=== PATIENT | female | born 1980 | race American Indian/Alaskan Native ===

== ENCOUNTER 2017-12-20 22:29 | Inpatient (IN) | payer SELFPAY ==
[2017-12-20] MEDS ORDERED: Sodium Chloride 0.9% 1,000 ML IV ONE (22:38)
--- NOTE | 2017-12-20 22:38 | ED Physician Chart ---
ED Chief Complaint/HPI - Patient Information Date Seen:: 12/20/17 Time Seen:: 22:30 Chief Complaint:: Abdominal Pain History of Present Illness:: onset x 3 days of intermittent, diffuse, crampy Abd. Pain, A/ N/V/D, weakness, dizziness,; pt denies trauma, H/As, S/T, neck pain, C/P, SOB, fever, chills, cough, or urinary s/s Historian:: Patient Review:: Nurse's Note Reviewed ED Review of Systems - Review of Systems General/Constitutional: No fever, No chills, No weight loss, No weakness, No diaphoresis, No edema, No loss of appetite Skin: No skin lesions, No rash, No bruising Head: No headache, No light-headedness Eyes: No loss of vision, No pain, No diplopia ENT: No earache, No nasal drainage, No sore throat, No tinnitus Neck: No neck pain, No swelling, No thyromegaly, No stiffness, No mass noted Cardio Vascular: No chest pain, No palpitations, No PND, No orthopnea, No edema Pulmonary: No SOB, No cough, No sputum, No wheezing GI: Nausea, Vomiting, Diarrhea, Pain, No melena, No hematochezia, No constipation, No hematemesis G/U: No dysuria, No frequency, No hematuria, No nacturia Puppy Walker: No vaginal discharge, No abnormal vaginal bleed, No contraction Musculoskeletal: No bone or joint pain, No back pain, No muscle pain Endocrine: No polyuria, No polydipsia Psychiatric: No prior psych history, No depression, No anxiety, No suicidal ideation, No homicidal ideation, No auditory hallucination, No visual hallucination Hematopoietic: No bruising, No lymphadenopathy Allergic/Immuno: No urticaria, No angioedema Neurological: No syncope, No focal symptoms, No weakness, No paresthesia, No headache, No seizure, No dizziness, No confusion, No vertigo ED Past Medical History - Past Medical History Obtainable: Yes Past Medical History: No significant medical hx Family History: HTN Social History: Non Smoker, Alcohol, No Drug Use, Single Surgical History: None Psychiatricy History: None Medication: Reviewed Family Medical History - Family Member Mother History Unknown: Yes ED Physical Exam - Physical Examination General/Constitutional: Awake, Well-developed, well-nourished, Alert, No distress, GCS 15, Non-toxic appearing, Ambulatory Head: Atraumatic Eyes: Lids, conjuctiva normal, PERRL, EOMI Other Eyes comments:: + Scleral Icterus Skin: Nl inspection, No rash, No skin lesions, No ecchymosis, Well hydrated, No lymphadenopathy Other Skin comments:: + Jaundice ENMT: External ears, nose nl, TM canals nl, Nasal exam nl, Lips, teeth, gums nl , Oropharynx nl, Tonsils nl Neck: Nontender, Full ROM w/o pain, No JVD, No nuchal rigidity, No bruit, No mass, No stridor Respiratory: Nl effort/Exclusion, Clear to Auscultation, No Wheeze/Rhonchi/Rales Cardio Vascular: RRR, No murmur, gallop, rubs, NL S1 S2, Carotid/Femoral/Distal pulses equal bilaterally GI: No tenderness/rebounding/guarding, No organomegaly, No hernia, Normal BS's, Nondistended, No mass/bruits, No McBurney tenderness Other GI comments:: + Ascites : No CVA tenderness Extremities: No tenderness or effusion, Full ROM, normal strength in all extremities, No edema, Normal digits & nails Neuro/Psych: Alert/oriented, DTR's symmetric, Normal sensory exam, Normal motor strength, Judgement/insight normal, Mood normal, Normal gait, No focal deficits Misc: Normal back, No paraspinal tenderness ED Labs/Radiology/EKG Results - Lab Results Comments:: ETOH: 281; WBC: 13.2; K+: 3.0; Elevated LFTs - EKG Interpretations EKG Time:: 22:50 Rate & Rhythm: 88; NSR Comments:: non-specific st-t changes ED Septic Shock - . Is Septic Shock (SBP<90, OR Lactate>4 mmol\L) present?: No ED Reassessment (Disposition) - Diagnosis Diagnosis:: Alcohol Intoxication; Hepatic Cirrhosis; Hypokalemia; Abdominal Pain; Ascites; AGE; N/V/D; Dehydration; Dizziness; Weakness - Aftercare/Follow up Instructions Aftercare/Follow-Up Instructions:: Counseled pt regarding lab results/diagnosis & need follow up, Counseled pt & family regarding lab results/diagnosis & need follow up - Patient Disposition Discharge/Transfer:: Acute Care w/in this hosp Accepting Physician:: Dr. Baker Time Called:: 299 Time Responded:: 23:50 Admitted to:: Telemetry Spoke to:: Dr. Baker Admitting Medical Physician:: Dr. Baker Condition at Disposition:: Stable, Improved
[2017-12-20 23:01] LABS: % BASOPHILS 0.8 % (0.0-2.0); % EOSINOPHILS 2.1 % (0.0-5.0); % LYMPHOCYTES 23.7 % (20.0-50.0); % NEUTROPHILS 67.4 % (40.0-80.0); BASOPHILE ABSOLUTE 0.1 Th/cumm (0-0.2); EOSINOPHILE ABSOLUTE 0.3 Th/cmm (0.1-0.4); HEMATOCRIT 46.2 % (41.0-60); HEMOGLOBIN 15.3 gm/dL (12-16); LYMPHOCYTE ABSOLUTE 3.1 Th/cmm (1.5-3.0); MEAN CELL VOLUME 101.8 fl (81-100); MEAN CORPUSCULAR HEMOGLOBIN 33.7 pg (27.0-31.0); MEAN CORPUSCULAR HGB CONC 33.2 pg (28.0-36.0); MEAN PLATELET VOLUME 8.7 fl; MONOCYTE ABSOLUTE 0.8 Th/cmm (0.3-1.0); NEUTROPHILE ABSOLUTE 8.9 Th/cmm (1.8-8.0); PLATELET COUNT 203 Th/cmm (150-400); RED BLOOD COUNT 4.53 Mil/cmm (3.80-5.10); RED CELL DISTRIBUTION WIDTH 13.7 % (11.5-20.0); URINE MICROSCOPIC INDICATED? YES; URINE SOURCE CLEAN C
[2017-12-20 23:04] LABS: URINE BILIRUBIN NEGATIVE (NEGATIVE); URINE BLOOD NEGATIVE (NEGATIVE); URINE GLUCOSE (UA) 100 mg/dL (NEGATIVE); URINE KETONE NEGATIVE (NEGATIVE); URINE LEUKOCYTE ESTERASE NEGATIVE (NEGATIVE); URINE NITRATE NEGATIVE (NEGATIVE); URINE PH 6.5 (4.6 - 8.0); URINE PROTEIN NEGATIVE (NEGATIVE); URINE UROBILINOGEN 0.2 E.U./dL (0.2 - 1.0)
[2017-12-20 23:11] LABS: WHITE BLOOD COUNT 13.2 Th/cmm (4.8-10.8)
[2017-12-20 23:12] LABS: URINE CLARITY CLEAR (CLEAR); URINE COLOR YELLOW
[2017-12-20 23:15] LABS: INR 1.01 (0.5-1.4); PROTHROMBIN TIME (TEST) 10.5 SECONDS (9.5-11.5)
[2017-12-20 23:17] LABS: URINE BACTERIA FEW /hpf (NONE SEEN); URINE EPITHELIAL CELLS FEW /lpf (FEW); URINE RBC 0-2 /hpf (0-5); URINE WBC 0-2 /hpf (0-5)
[2017-12-20 23:19] LABS: AMPHETAMINE URINE NEGATIVE (NEGATIVE); BARBITURATES URINE NEGATIVE (NEGATIVE); BENZODIAZEPINES QUAL URINE NEGATIVE (NEGATIVE); CANNABINOID THC NEGATIVE (NEGATIVE); COCAINE METABOLITE QUAL URINE NEGATIVE (NEGATIVE); METHADONE URINE NEGATIVE (NEGATIVE); METHAMPHETAMINES QUAL URINE NEGATIVE (NEGATIVE); OPIATES (MORPHINE) QUAL. URINE NEGATIVE (NEGATIVE); PHENCYCLIDINE (PCP) URINE NEGATIVE (NEGATIVE); TRICYCLICS (TCA) QUAL. URINE NEGATIVE (NEGATIVE)
[2017-12-20 23:29] LABS: ALB/GLOB RATIO 1.5 (1.0-1.8); ALBUMIN 3.8 gm/dL (3.7-5.3); ALKALINE PHOSPHATASE 109 U/L (34-104); AMYLASE SERUM 18 U/L (29-103); ANION GAP 15.1 (7.0-16.0); BILIRUBIN,TOTAL 0.6 mg/dL (0.3-1.0); CALCIUM SERUM 8.9 mg/dL (8.6-10.3); CARBON DIOXIDE 19.9 mEq/L (21.0-31.0); CHLORIDE 104 mEq/L (98-107); CHOLESTEROL 181 mg/dL (<200); CREATININE - SERUM 0.6 mg/dL (0.6-1.2); CREATININE KINASE 50 U/L (30-223); GFR AFRICAN-AMERICAN > 60.0 ml/min (>90); GFR NON AFRICAN-AMERICAN > 60.0 ml/min; GLUCOSE 217 mg/dL (70-105); HDL -HIGH DENSITY LIPOPROTEIN 36 mg/dL (23-92); LIPASE 8 U/L (11-82); SGOT 114 U/L (13-39); SGPT/ALT 68 U/L (7-52); SODIUM SERUM 136 mEq/L (136-145); TOTAL PROTEIN,SERUM 6.4 gm/dL (6.0-8.3); TRIGLYCERIDES 271 mg/dL (<150)
[2017-12-20 23:33] LABS: BUN - UREA NITROGEN < 2 mg/dL (7-25)
[2017-12-21] MEDS ORDERED: Sodium Chloride 0.9% 1,000 ML IV ONE ×2 (00:07→00:08)
[2017-12-21] MEDS ORDERED: Potassium Chloride 20 mEq ER Tab PO ONE ×2 (00:09→00:50)
[2017-12-21] MEDS ORDERED: Multivitamin Inj 10 ML, Thiamine HCL 100 MG, Magnesium Sulfate 2 GM, Folic Acid 1 MG in... IV ONE (00:10)
[2017-12-21] MEDS ORDERED: cefTRIAXone 1 GM in Sodium Chloride 0.9% 50 ML IV ONE (00:11)
[2017-12-21] MEDS ORDERED: Multivitamin Inj 10 mL Vial IV ONE (00:40)
[2017-12-21] MEDS ORDERED: Thiamine 100 mg/mL 2mL Vial ONE (00:41)
[2017-12-21] MEDS ORDERED: Magnesium Sulfate 1 gm/2 mL 2mL Vial IV ONE (00:42)
--- NOTE | 2017-12-21 11:30 | Diagnostic Imaging Report ---
CT scan abdomen and pelvis without intravenous contrast HISTORY: Pain Total DLP equals 613 CTDI equals 12.9 Axial sections were obtained from the xiphoid process down to the pubic symphysis. The liver is enlarged. There is a decrease in overall hepatic parenchymal density consistent with fatty infiltration. The findings should be correlated with liver function tests. No focal lesions. The spleen appears normal. Surgical clips are seen within the daniel hepatis region consistent with a prior cholecystectomy. No focal amenities seen within the pancreas. No focal renal lesions. The exam of the pelvis demonstrates preservation of normal fat planes. No abnormal soft tissue masses or abnormal fluid collections. Surgical clips noted in the right lower quadrant of the abdomen. IMPRESSION: 1. No acute abnormalities 2. Hepatomegaly along with changes suggesting fatty infiltration. The findings should be correlated with liver function tests 3. Surgical changes including findings of a prior cholecystectomy along with surgical clips in the right lower quadrant of the abdomen.
[2017-12-21 19:23] LABS: HEMOGLOBIN 13.6 gm/dL (12-16); MEAN CELL VOLUME 101.2 fl (81-100); MEAN CORPUSCULAR HEMOGLOBIN 34.5 pg (27.0-31.0); MEAN CORPUSCULAR HGB CONC 34.1 pg (28.0-36.0); MEAN PLATELET VOLUME 9.1 fl; RED BLOOD COUNT 3.95 Mil/cmm (3.80-5.10)
[2017-12-21 19:27] LABS: HEMATOCRIT 39.9 % (41.0-60); WHITE BLOOD COUNT 7.8 Th/cmm (4.8-10.8)
[2017-12-21 19:28] LABS: PLATELET COUNT 158 Th/cmm (150-400)
[2017-12-21 19:30] LABS: % LYMPHOCYTES 32.3 % (20.0-50.0); % MONOCYTES 6.8 % (2.0-10.0); % NEUTROPHILS 51.6 % (40.0-80.0); BASOPHILE ABSOLUTE 0.4 Th/cumm (0-0.2); EOSINOPHILE ABSOLUTE 0.3 Th/cmm (0.1-0.4); LYMPHOCYTE ABSOLUTE 2.5 Th/cmm (1.5-3.0); MONOCYTE ABSOLUTE 0.5 Th/cmm (0.3-1.0); NEUTROPHILE ABSOLUTE 4.1 Th/cmm (1.8-8.0)
[2017-12-21 19:31] LABS: % BASOPHILS 0.3 % (0.0-2.0)
[2017-12-21 19:45] LABS: ANION GAP 8.3 (7.0-16.0); BUN - UREA NITROGEN 3 mg/dL (7-25); CALCIUM SERUM 8.6 mg/dL (8.6-10.3); CARBON DIOXIDE 25.3 mEq/L (21.0-31.0); CHLORIDE 106 mEq/L (98-107); CREATININE - SERUM 0.6 mg/dL (0.6-1.2); GFR AFRICAN-AMERICAN > 60.0 ml/min (>90); GFR NON AFRICAN-AMERICAN > 60.0 ml/min; POTASSIUM SERUM 3.6 mEq/L (3.5-5.1); SODIUM SERUM 136 mEq/L (136-145)
[2017-12-21 19:47] LABS: GLUCOSE 129 mg/dL (70-105)
[2017-12-21] MEDS: Lactulose 10 Gm/15 mL 30mL UDC PO SCH (22:01)
[2017-12-22 06:39] LABS: % BASOPHILS 1.5 % (0.0-2.0); % EOSINOPHILS 5.5 % (0.0-5.0); % LYMPHOCYTES 39.6 % (20.0-50.0); % MONOCYTES 6.5 % (2.0-10.0); % NEUTROPHILS 46.9 % (40.0-80.0); BASOPHILE ABSOLUTE 0.1 Th/cumm (0-0.2); EOSINOPHILE ABSOLUTE 0.4 Th/cmm (0.1-0.4); HEMATOCRIT 39.6 % (41.0-60); HEMOGLOBIN 13.8 gm/dL (12-16); MEAN CORPUSCULAR HEMOGLOBIN 35.2 pg (27.0-31.0); MEAN CORPUSCULAR HGB CONC 34.9 pg (28.0-36.0); MEAN PLATELET VOLUME 8.8 fl; MONOCYTE ABSOLUTE 0.5 Th/cmm (0.3-1.0); NEUTROPHILE ABSOLUTE 3.6 Th/cmm (1.8-8.0); PLATELET COUNT 149 Th/cmm (150-400); RED BLOOD COUNT 3.91 Mil/cmm (3.80-5.10); RED CELL DISTRIBUTION WIDTH 13.8 % (11.5-20.0); WHITE BLOOD COUNT 7.6 Th/cmm (4.8-10.8)
[2017-12-22 07:28] LABS: ANION GAP 8.8 (7.0-16.0); BUN - UREA NITROGEN 3 mg/dL (7-25); CALCIUM SERUM 9.1 mg/dL (8.6-10.3); CARBON DIOXIDE 26.7 mEq/L (21.0-31.0); CHLORIDE 106 mEq/L (98-107); CREATININE - SERUM 0.6 mg/dL (0.6-1.2); GFR AFRICAN-AMERICAN > 60.0 ml/min (>90); GFR NON AFRICAN-AMERICAN > 60.0 ml/min; GLUCOSE 111 mg/dL (70-105); POTASSIUM SERUM 3.5 mEq/L (3.5-5.1); SODIUM SERUM 138 mEq/L (136-145)
[2017-12-22] MEDS: Lactulose 10 Gm/15 mL 30mL UDC PO SCH ×3 (10:25→21:19)
[2017-12-22] MEDS: Pantoprazole 40 mg EC Tab PO SCH (16:15)
[2017-12-22] MEDS: Multivitamin Tab PO SCH (16:15)
--- NOTE | 2017-12-22 19:19 | History & Physical ---
ADMIT DATE: 12/21/2017 CHIEF COMPLAINT: Abdominal pain. HISTORY OF PRESENT ILLNESS: This is a 37-year-old female who was admitted to the Emergency Room due to 3 days of intermittent abdominal pain. REVIEW OF SYSTEMS: GENERAL: This is a 37-year-old female that appears as stated. Denies any fever, denies any chills. HEENT: Head, denies any headache. Denies any dizziness. Eyes: Denies blurring of vision. Denies eye pain. NECK: Denies nuchal rigidity. Denies neck pain. CHEST: Denies palpitation. Denies shortness of breath. PULMONARY: Denies coughing. GASTROINTESTINAL: Positive nausea, positive vomiting, and positive abdominal pain. MUSCULOSKELETAL: Denies joint pain. Denies muscle pain. SOCIAL HISTORY: The patient lives at home with family. The patient admits to have alcohol intake almost on daily basis. The patient smoked half a pack of cigarettes per day. PAST SURGICAL HISTORY: Unremarkable. PAST MEDICAL HISTORY: Includes liver cirrhosis as per patient. FAMILY HISTORY: Unremarkable. PHYSICAL EXAMINATION: VITAL SIGNS: Temperature 98.3, heart rate of 53, blood pressure 154/86, respirations of 20, and 96% on room air. HEENT: Head is atraumatic, normocephalic. Eyes, bilateral conjunctivae are clear. Bilateral pupils are equally round and reactive. NECK: Supple. No JVD. CARDIOVASCULAR: S1 and S2, without murmur. LUNGS: Clear to auscultation. GASTROINTESTINAL: Soft and nontender without guarding. Positive bowel sounds. MUSCULOSKELETAL: No clubbing. No cyanosis noted. ASSESSMENT: 1. Liver cirrhosis. 2. Alcohol intoxication, alcohol abuse. 3. Obesity. 4. Nicotine dependence. 5. Gastroesophageal reflux disease. PLAN: We will keep the patient inpatient. We will follow up with the GI doctor to monitor the patient's condition and behavior status. Also do medication reconciliation accordingly. Treatment plans were discussed with the patient's nurse. Treatment plans were discussed with Dr Baker. JOB# [id number]
--- NOTE | 2017-12-22 21:52 | Consultation ---
DATE OF CONSULTATION: 12/22/2017 REASON FOR CONSULTATION: Abnormal liver enzymes and abdominal pain. HISTORY OF PRESENT ILLNESS: This consult was obtained through the courtesy of Dr. Baker for this 37-year-old with history of obesity, presenting to the hospital because of abdominal pain by nausea, vomiting, weakness, dizziness. When patient came to the hospital, she was found to have abnormal liver enzymes and she admits to heavy alcohol intake. PAST MEDICAL HISTORY: Obesity. PAST SURGICAL HISTORY: Had cholecystectomy, appendectomy, and two ectopic pregnancies. SOCIAL HISTORY: Smokes 1 pack a day, drinks 8 drinks a day between two of 24 ounces cans of beer and 4 shots of hard liquor. The patient is ex-nasal abuser who has not used them for many years and she has been tested for hepatitis after the stoppage and she said she was negative. FAMILY HISTORY: Father had kidney cancer. MEDICATIONS: None. ALLERGIES: DEMEROL. REVIEW OF SYSTEMS: She lost 28 pounds over 5 weeks. She has diarrhea constantly for a long time and she denies any bleeding. PHYSICAL EXAMINATION: GENERAL: The patient is awake, oriented to self, place, and time, in no acute distress. VITAL SIGNS: Blood pressure is 124/81, heart rate 62, respiratory rate 18, and temperature is 97.1. HEAD AND NECK: Pupils reactive to light. Extraocular muscles intact. Sclerae anicteric. Conjunctivae not pale. Oral cavity, no lesion. NECK: Supple, no jugular venous distention, no carotid bruit or lymph node. CHEST: Good respiratory movements. LUNGS: Showed bilateral wheezes. CARDIOVASCULAR: Regular rate and rhythm. No murmur or gallop. ABDOMEN: Obese, soft, positive bowel sounds. Positive right upper quadrant tenderness. LABORATORY DATA AND DIAGNOSTIC DATA: Bilirubin is 0.6, AST is 114, ALT 68, alkaline phosphatase 109. Triglycerides 271. Lipase is normal. Albumin is 3.8. PT is normal 10.5 seconds. Platelets counts are 203, now down to 149; H and H are 13.8 and 39.6. The patient had a CT of the abdomen and pelvis, which showed hepatomegaly with fatty infiltration and it showed previous surgery such as cholecystectomy and surgery of the right lower quadrant as well. IMPRESSION: A 37-year-old with heavy alcohol use, presenting with abdominal pain, abnormal liver enzymes. ASSESSMENT AND PLAN: Abdominal pain, nausea, vomiting, this is most likely alcohol-induced gastritis, cannot exclude a small ulcer, erosive esophagitis, etc. RECOMMENDATIONS: 1. PPI. 2. Monitor labs. 3. Avoid alcohol in the future. 4. If the patient is not improving, then endoscopy. 5. Abnormal liver enzyme, at this time to alcoholic liver disease. At this time, there is no evidence of cirrhosis. We will continue with IV fluids. We will add multivitamin, thiamine, folic acid, and then further recommendations to follow. 6. High ammonia level. There is no evidence of encephalopathy, but the patient is on lactulose. We will see what the numbers are. Thank you Dr. Baker for allowing me to participate in the care of the patient. If you have any further questions, please let me know. [facility]# [id number]
[2017-12-23 07:04] LABS: % BASOPHILS 0.9 % (0.0-2.0); % LYMPHOCYTES 30.1 % (20.0-50.0); % MONOCYTES 4.8 % (2.0-10.0); % NEUTROPHILS 58.2 % (40.0-80.0); BASOPHILE ABSOLUTE 0.1 Th/cumm (0-0.2); EOSINOPHILE ABSOLUTE 0.6 Th/cmm (0.1-0.4); LYMPHOCYTE ABSOLUTE 3.2 Th/cmm (1.5-3.0); MEAN CELL VOLUME 101.1 fl (81-100); MEAN CORPUSCULAR HEMOGLOBIN 34.3 pg (27.0-31.0); MEAN CORPUSCULAR HGB CONC 33.9 pg (28.0-36.0); MEAN PLATELET VOLUME 9.2 fl; MONOCYTE ABSOLUTE 0.5 Th/cmm (0.3-1.0); NEUTROPHILE ABSOLUTE 6.2 Th/cmm (1.8-8.0); PLATELET COUNT 164 Th/cmm (150-400); RED BLOOD COUNT 4.38 Mil/cmm (3.80-5.10); RED CELL DISTRIBUTION WIDTH 13.6 % (11.5-20.0)
[2017-12-23 07:08] LABS: WHITE BLOOD COUNT 10.6 Th/cmm (4.8-10.8)
[2017-12-23 07:09] LABS: HEMATOCRIT 44.3 % (41.0-60)
[2017-12-23 07:22] LABS: ALB/GLOB RATIO 1.2 (1.0-1.8); ALBUMIN 3.6 gm/dL (3.7-5.3); ALKALINE PHOSPHATASE 91 U/L (34-104); ANION GAP 10.4 (7.0-16.0); BILIRUBIN,TOTAL 0.9 mg/dL (0.3-1.0); BUN - UREA NITROGEN 4 mg/dL (7-25); CALCIUM SERUM 9.3 mg/dL (8.6-10.3); CARBON DIOXIDE 21.8 mEq/L (21.0-31.0); CHLORIDE 107 mEq/L (98-107); CREATININE - SERUM 0.6 mg/dL (0.6-1.2); GFR AFRICAN-AMERICAN > 60.0 ml/min (>90); GFR NON AFRICAN-AMERICAN > 60.0 ml/min; GLUCOSE 102 mg/dL (70-105); POTASSIUM SERUM 4.2 mEq/L (3.5-5.1); SGOT 67 U/L (13-39); SGPT/ALT 44 U/L (7-52); SODIUM SERUM 135 mEq/L (136-145); TOTAL PROTEIN,SERUM 6.5 gm/dL (6.0-8.3)
[2017-12-23] MEDS: Lactulose 10 Gm/15 mL 30mL UDC PO SCH ×3 (08:25→21:58)
[2017-12-23] MEDS: Pantoprazole 40 mg EC Tab PO SCH (08:26)
[2017-12-23] MEDS: Multivitamin Tab PO SCH (08:26)
--- NOTE | 2017-12-23 10:31 | General Progress Note ---
Subjective - Review of Systems Events since last encounter: in no acute distress c/o abd pain Objective - Results Result Diagrams: 12/23/17 06:51 12/23/17 06:51 Recent Labs: Laboratory Last Values WBC 10.6 Th/cmm (4.8-10.8) D 12/23/17 06:51 RBC 4.38 Mil/cmm (3.80-5.10) 12/23/17 06:51 Hgb 15.0 gm/dL (12-16) 12/23/17 06:51 Hct 44.3 % (41.0-60) D 12/23/17 06:51 MCV 101.1 fl (81-100) H 12/23/17 06:51 MCH 34.3 pg (27.0-31.0) H 12/23/17 06:51 MCHC Differential 33.9 pg (28.0-36.0) 12/23/17 06:51 RDW 13.6 % (11.5-20.0) 12/23/17 06:51 Plt Count 164 Th/cmm (150-400) 12/23/17 06:51 MPV 9.2 fl 12/23/17 06:51 Neutrophils % 58.2 % (40.0-80.0) 12/23/17 06:51 Lymphocytes % 30.1 % (20.0-50.0) 12/23/17 06:51 Monocytes % 4.8 % (2.0-10.0) 12/23/17 06:51 Eosinophils % 6.0 % (0.0-5.0) H 12/23/17 06:51 Basophils % 0.9 % (0.0-2.0) 12/23/17 06:51 PT 10.5 SECONDS (9.5-11.5) 12/20/17 22:45 INR 1.01 (0.5-1.4) 12/20/17 22:45 Sodium 135 mEq/L (136-145) L 12/23/17 06:51 Potassium 4.2 mEq/L (3.5-5.1) 12/23/17 06:51 Chloride 107 mEq/L (98-107) 12/23/17 06:51 Carbon Dioxide 21.8 mEq/L (21.0-31.0) 12/23/17 06:51 Anion Gap 10.4 (7.0-16.0) 12/23/17 06:51 BUN 4 mg/dL (7-25) L 12/23/17 06:51 Creatinine 0.6 mg/dL (0.6-1.2) 02 06:51 Est GFR ( Amer) > 60.0 ml/min (>90) 12/23/17 06:51 Est GFR (Non-Af Amer) > 60.0 ml/min 12/23/17 06:51 BUN/Creatinine Ratio 6.7 12/23/17 06:51 Glucose 102 mg/dL (70-105) 12/23/17 06:51 POC Glucose 136 MG/DL (70 - 105) H 12/21/17 02:58 Hemoglobin A1c % 6.0 % (4.0-6.0) 12/21/17 04:00 Whole Bld Lactic Acid 2.73 mmol/L (0.60-1.99) H* 12/21/17 04:00 Calcium 9.3 mg/dL (8.6-10.3) 12/23/17 06:51 Total Bilirubin 0.9 mg/dL (0.3-1.0) 12/23/17 06:51 AST 67 U/L (13-39) H 12/23/17 06:51 ALT 44 U/L (7-52) 12/23/17 06:51 Alkaline Phosphatase 91 U/L (34-104) 12/23/17 06:51 Ammonia 69 umol/L (16-53) H 12/23/17 06:51 Creatine Kinase 50 U/L (30-223) 12/20/17 22:45 Troponin I < 0.01 ng/mL (0.01-0.05) L 12/20/17 22:45 B-Natriuretic Peptide 35.3 pg/mL (5.0-100.0) 12/20/17 22:45 Total Protein 6.5 gm/dL (6.0-8.3) 12/23/17 06:51 Albumin 3.6 gm/dL (3.7-5.3) L 12/23/17 06:51 Globulin 2.9 gm/dL 12/23/17 06:51 Albumin/Globulin Ratio 1.2 (1.0-1.8) 12/23/17 06:51 Triglycerides 271 mg/dL (<150) H 12/20/17 22:45 Cholesterol 181 mg/dL (<200) 12/20/17 22:45 LDL Cholesterol Direct 119 mg/dL (75-193) 12/20/17 22:45 HDL Cholesterol 36 mg/dL (23-92) 12/20/17 22:45 Amylase 18 U/L (29-103) L 12/20/17 22:45 Lipase 8 U/L (11-82) L 12/20/17 22:45 Serum , Qual NEGATIVE (NEGATIVE) 12/20/17 22:45 Urine Source CLEAN C 12/20/17 22:45 Urine Color YELLOW 12/20/17 22:45 Urine Clarity CLEAR (CLEAR) 12/20/17 22:45 Urine pH 6.5 (4.6 - 8.0) 12/20/17 22:45 Ur Specific [place] <= 1.005 (1.005-1.030) 12/20/17 22:45 Urine Protein NEGATIVE mg/dL (NEGATIVE) 12/20/17 22:45 Urine Glucose (UA) 100 mg/dL (NEGATIVE) H 12/20/17 22:45 Urine Ketones NEGATIVE mg/dL (NEGATIVE) 12/20/17 22:45 Urine Blood NEGATIVE (NEGATIVE) 12/20/17 22:45 Urine Nitrate NEGATIVE (NEGATIVE) 12/20/17 22:45 Urine Bilirubin NEGATIVE (NEGATIVE) 12/20/17 22:45 Urine Urobilinogen 0.2 E.U./dL (0.2 - 1.0) 12/20/17 22:45 Ur Leukocyte Esterase NEGATIVE (NEGATIVE) 12/20/17 22:45 Urine RBC 0-2 /hpf (0-5) 12/20/17 22:45 Urine WBC 0-2 /hpf (0-5) 12/20/17 22:45 Ur Epithelial Cells FEW /lpf (FEW) 12/20/17 22:45 Urine Bacteria FEW /hpf (NONE SEEN) 12/20/17 22:45 Urine Test NEGATIVE 12/20/17 22:45 Urine Opiates Screen NEGATIVE (NEGATIVE) 12/20/17 22:45 Urine Methadone Screen NEGATIVE (NEGATIVE) 12/20/17 22:45 Ur Barbiturates Screen NEGATIVE (NEGATIVE) 12/20/17 22:45 Ur Tricyclics Screen NEGATIVE (NEGATIVE) 12/20/17 22:45 Ur Phencyclidine Scrn NEGATIVE (NEGATIVE) 12/20/17 22:45 Amphetamines Screen NEGATIVE (NEGATIVE) 12/20/17 22:45 U Methamphetamines Scrn NEGATIVE (NEGATIVE) 12/20/17 22:45 U Benzodiazepines Scrn NEGATIVE (NEGATIVE) 12/20/17 22:45 U Cocaine Metab Screen NEGATIVE (NEGATIVE) 12/20/17 22:45 U Cannabinoids Screen NEGATIVE (NEGATIVE) 12/20/17 22:45 Ethyl Alcohol 281 mg/dL (0-10) H 12/20/17 22:45 - Physical Exam Vitals and I&O: Vital Signs Temp 97.7 F 12/23/17 10:08 Pulse 60 12/23/17 10:08 Resp 18 12/23/17 10:08 BP 121/77 12/23/17 10:08 Pulse Ox 97 12/23/17 10:08 Intake & Output 12/22/17 12/23/17 12/23/17 18:59 06:59 18:59 Intake Total 800 1200 Balance 800 1200 Weight (lbs) 92.986 kg 92.896 kg Intake: Oral 800 1200 Other: # Voids 3 4 # Bowel Movements 5 Active Medications: Current Medications Acetaminophen (Tylenol) 650 mg PO Q6H PRN PRN Reason: Headache Last Admin: 12/22/17 01:02 Dose: 650 mg Folic Acid (Folate) 1 mg PO DAILY ANGELIQUE Stop: 02/20/18 15:59 Last Admin: 12/23/17 08:26 Dose: 1 mg Lactulose (Cephulac) 60 gm PO TID ANGELIQUE Stop: 02/19/18 21:44 Last Admin: 12/23/17 08:25 Dose: 60 gm Multivitamins/Vitamin C (Theragran) 1 tab PO DAILY ANGELIQUE Stop: 02/20/18 15:59 Last Admin: 12/23/17 08:26 Dose: 1 tab Pantoprazole Sodium (Protonix) 40 mg PO DAILY ANGELIQUE Stop: 02/20/18 15:59 Last Admin: 12/23/17 08:26 Dose: 40 mg Thiamine HCl (Vitamin B1) 100 mg PO DAILY ANGELIQUE Stop: 02/20/18 15:59 Last Admin: 12/23/17 08:26 Dose: 100 mg Nutritional Asmnt/Malnutr-PDOC - Dietary Evaluation Malnutrition Findings (Please click <Entered> for more info): Nutritional Asmnt/Malnutrition Start: 12/21/17 14: 18 Text: Status: Complete Freq: Document 12/21/17 14:18 TREY (Rec: 12/21/17 14:31 [id number]) Nutritional Asmnt/Malnutrition Patient General Information Nutritional Screening High Risk Diagnosis hypokalemia, sepsis, liver cirrhosis, ETOH Pertinent Medical Hx/Surgical Hx no significant hx Subjective Information Pt seen sitting in bed having lunch at time of visit, alert and pleasant. Pt reported no N /V today, appetite good, liked the fish, and she is vegeterian. Current Diet Order/ Nutrition Support regular Pertinent Medications reviewed Pertinent Labs 12/20 Na 126, K 3.0, Cl 104, BUN <2, Cr 0.6, Glucose 217, 12/21 A1c 6.0, POC 136 Nutritional Hx/Data Height 1.6 m Height (Calculated Centimeters) 160.0 Current Weight (lbs) 90.718 kg Weight (Calculated Kilograms) 90.7 Weight (Calculated Grams) 21653.5 [place] Body Weight 115 % [place] Body Weight 173 Body Mass Index (BMI) 35.4 Weight Status Obese GI Symptoms GI Symptoms None Last BM no record Difficult in: None Usual diet at home pt reported poor oral intake, N/V for 3 days before admission. Skin Integrity/Comment: intact Current %PO Good (75-100%) Estimated Nutritional Goals BEE in Kcals: Adj wt of IBW Calories/Kcals/Kg 25-30 Kcals Calculated 0749-5411 Protein: Adj wt of IBW Protein g/k Protein Calculated 62 Fluid: ml 1550-1860ml (1ml/kcal) Nutritional Problem 1. Problem Problem altered nutrition related lab values Etiology possible endocrine dysfunction , excessive carborhydrate intake Signs/Symptoms: Glucose 217, A1c 6.0, Malnutrition Alert Protein-Calorie Malnutrition N/A Is there a minimum of two criteria No selected? Query Text:Check all the applicable criteria. A minimum of two criteria are recommended for diagnosis of either severe or non-severe malnutrition. Intervention/Recommendation Comments 1. Continue with current diet as ordered. If blood sugar continue high, will consider CCHO diet. 2. Monitor PO intake, wt, labs and skin integrity 3. F/U as moderate risk in 3-5 days, 12/24-12/26 Expected Outcomes/Goals Expected Outcomes/Goals 1. PO intake to meet at least 75% of nutritional needs. 2. Wt stability, skin to remain intact, labs to approach WNL.
[2017-12-24] MEDS: Multivitamin Tab PO SCH (08:14)
[2017-12-24] MEDS: Pantoprazole 40 mg EC Tab PO SCH (08:14)
[2017-12-24] MEDS: Lactulose 10 Gm/15 mL 30mL UDC PO SCH ×2 (08:15→13:32)
--- NOTE | 2018-01-06 05:42 | Discharge Summary ---
DATE OF DISCHARGE: 12/24/2017 HOSPITAL COURSE: The patient was admitted to [facility] on 12/21/2017 and the patient was discharged on 12/24/2017. The patient was initially admitted because the patient was altered, been taking alcohol and the initial diagnoses of alcoholic intoxication and chronic alcoholism, nicotine dependence, obesity and gastroesophageal reflux disease and the patient was treated with IV banana bag with vitamins and Librium. Gradually, the patient improved and the patient was in stable condition and on 12/24/2017 was discharged with the final diagnoses of history of chronic alcoholism status post alcoholic intoxication, history of cirrhosis of the liver, and nicotine dependence. The patient was counseled regarding her smoking cessation as well as alcohol cessation and the patient was given some resources for that and the patient was advised to come back and see me in the office in 3 days and was given multivitamin tablets and the patient was advised to get good nutrition and activity as tolerated. CONDITION AT THE TIME OF DISCHARGE: Stable. [facility]# [id number]
== END 2017-12-24 16:00 | disposition home or self-care (01) | DRG 897 ==
LOC: ER 22:29 → TELE 12-21 00:30
PROVIDERS: ADMIT Internal Medicine; ATTEND Internal Medicine
DX: F10.129 Alcohol abuse with intoxication, unspecified (principal); K70.31 Alcoholic cirrhosis of liver with ascites; E66.9 Obesity, unspecified; F17.210 Nicotine dependence, cigarettes, uncomplicated; K21.9 Gastro-esophageal reflux disease without esophagitis; E87.6 Hypokalemia; Y90.8 Blood alcohol level of 240 mg/100 ml or more; K52.9 Noninfective gastroenteritis and colitis, unspecified; E86.0 Dehydration; Z68.36 Body mass index [BMI] 36.0-36.9, adult
CPT/HCPCS: 36415-UA; 80048-TC; 80053-TC; 80061-TC; 80307; 80320-TC; 81001-TC; 81025-TC; 82140-TC; 82150-TC; 82550-TC; 82948-90; 83036-90; 83605; 83690-TC; 83880-TC; 84484-TC; 84703-TC; 85025-TC; 85610-TC; 93005; 96374; J0696; J2405; J3411; J3475; J7030; X6598; Z7610